=== PATIENT | male | born 1995 | race Caucasian/White ===

== ENCOUNTER 2025-02-07 23:41 | Emergency (ER) | payer BC ==
[~2025-02-07] VITALS: Ht 185.4 cm; Wt 111.0 kg
[2025-02-07 23:50] VITALS: TEMP 36.7; O2SAT 97
[2025-02-08] MEDS: BACITRACIN ZINC OINT UDPKT TOP ONE (00:10)
[2025-02-08] MEDS: LIDOCAINE HCL/PF 1% 10 MG/ML 5ML VIAL INFIL ONE (00:10)
[2025-02-08] MEDS: TETANUS, DIPHTHERIA, PERTUSSIS VAC/PF 0.5ML (>10YR OLD) IM ONE (03:09)
[2025-02-08 03:14] VITALS: BP 136/80; PULSE 84; RESP 20; O2SAT 95
== END 2025-02-08 03:14 | disposition home or self-care (01) ==
LOC: ER 23:41
DX: S01.81XA Laceration without foreign body of other part of head, initial encounter (principal); Z98.890 Other specified postprocedural states; Z88.1 Allergy status to other antibiotic agents; Z88.2 Allergy status to sulfonamides; W51.XXXA Accidental striking against or bumped into by another person, initial encounter; Y93.89 Activity, other specified; Y92.89 Other specified places as the place of occurrence of the external cause; Y99.8 Other external cause status
CPT/HCPCS: 99283; 12013; 90715; 90471; J2003